=== PATIENT | male | born 1980 | race Caucasian/White ===

== ENCOUNTER 2022-11-16 11:16 | Emergency (ER) | payer SELFPAY ==
[~2022-11-16] VITALS: Ht 165.1 cm; Wt 98.0 kg
[2022-11-16 11:26] VITALS: BP 148/71; PULSE 88; RESP 12; TEMP 98.5; O2SAT 99
== END 2022-11-16 11:35 | disposition left against medical advice (07) ==
LOC: ER 11:33
DX: S00.81XA Abrasion of other part of head, initial encounter (principal); W34.00XA Accidental discharge from unspecified firearms or gun, initial encounter; Y93.89 Activity, other specified; Y92.89 Other specified places as the place of occurrence of the external cause; Y99.8 Other external cause status
CPT/HCPCS: 99283